=== PATIENT | male | born 1975 ===

== ENCOUNTER 2017-04-10 14:32 | Emergency (ER) | payer OTHER ==
[2017-04-10 14:33] VITALS: BMI 25.1
[2017-04-10 14:54] VITALS: BP 118/77; PULSE 79; RESP 20; TEMP 98.5; O2SAT 98
--- NOTE | 2017-04-10 15:19 | C.PDOC ---
History Of Present Illness 41 y/o M c no PMHx p/w R lower back pain x 2 days radiating down R leg. States began immediately while he was moving an air conditioner. Worse with bending over. Denies numbness, paresthesias, urinary or bowel changes, motor weakness. Time Seen by Provider: 04/10/17 15:01 Chief Complaint (Nursing): Back Pain Past Medical History Vital Signs: Last Vital Signs Temp 98.5 F 04/10/17 14:53 Pulse 79 04/10/17 14:53 Resp 20 04/10/17 14:53 BP 118/77 04/10/17 14:53 Pulse Ox 98 04/10/17 15:20 - Medical History PMH: Denies: Chronic Kidney Disease Surgical History: Appendectomy (1998) Family History: States: Unknown Family Hx - Social History Hx Tobacco Use: Yes Hx Alcohol Use: No Hx Substance Use: No - Immunization History Hx Tetanus Toxoid Vaccination: No Hx Influenza Vaccination: No Hx Pneumococcal Vaccination: No Review Of Systems Except As Marked, All Systems Reviewed And Found Negative. Constitutional: Negative for: Fever Cardiovascular: Negative for: Chest Pain Physical Exam - Physical Exam Additional Physical Exam Comments: R leg FROM at hip, knee with pain. Antalgic gait. Sensation to light touch intact in bilateral legs and saddle area. R perispinal tenderness. No midline tenderness. ED Course And Treatment O2 Sat by Pulse Oximetry: 98 Medical Decision Making Medical Decision Making: Flexeril PO, rest, NSAIDs. F/u PMD, return to ED for worsening pain, urinary or bowel changes, numbness, weakness. Disposition - Disposition Disposition: HOME/ ROUTINE Disposition Time: 15:27 Condition: STABLE Prescriptions: Methocarbamol [Robaxin-750] 1 tab PO Q8H #12 tablet Instructions: Back Pain (ED) Forms: [facility] (Zambian) - Clinical Impression Clinical Impression: Low back pain
== END 2017-04-10 16:00 | disposition home or self-care (01) ==
LOC: C.ER 14:32
DX: M54.5 Low back pain (principal)
CPT/HCPCS: 96372; 99283; J1885

== ENCOUNTER 2017-04-21 14:15 | Emergency (ER) | payer OTHER ==
[2017-04-21 14:15] VITALS: BMI 25.1
[2017-04-21] MEDS ORDERED: Naproxen 550 mg Tab PO STA (14:53)
[2017-04-21] MEDS ORDERED: Naproxen 550 mg Tab PO ONE (15:12)
[2017-04-21 15:52] LABS: RBC URINE < 1 /hpf (0-3); URINE BILIRUBIN NEGATIVE (NEGATIVE); URINE BLOOD NEGATIVE (NEGATIVE); URINE COLOR Yellow (YELLOW); URINE GLUCOSE (UA) NORMAL (Normal); URINE KETONE NEGATIVE (NEGATIVE); URINE LEUKOCYTE ESTERASE NEG Leu/uL (Negative); URINE PROTEIN NEGATIVE (NEGATIVE); URINE UROBILINOGEN NORMAL mg/dL (0.2-1.0); WBC URINE < 1 /hpf (0-5)
--- NOTE | 2017-04-21 16:06 | C.PDOC ---
History Of Present Illness 41 y/o male presents to the ED for evaluation of right-sided lower back and hip pain which began after he lifted a heavy air conditioner around 10 days ago. Patient states he was evaluated in ED for his pain and was discharged with Rx. Patient states his back pain has improved but he continues to experience hip pain which now radiates down his right leg. Patient also reports left foot pain which began around 3 days ago. Patient denies fever, chills, dysuria, hematuria , urinary/bowel incontinence, or recent trauma/injury to affected area, or extremity numbness/weakness. Time Seen by Provider: 04/21/17 14:30 Chief Complaint (Nursing): Back Pain History Per: Patient History/Exam Limitations: no limitations Onset/Duration Of Symptoms: Days Current Symptoms Are (Timing): Still Present Quality Of Discomfort: "Pain" Previous Symptoms: Back Pain Associated Symptoms: denies: Incontinence, New Weakness, New Numbness Additional History Per: Patient Past Medical History Reviewed: Historical Data, Nursing Documentation, Vital Signs Vital Signs: Last Vital Signs Temp 97.5 F L 04/21/17 16:40 Pulse 74 04/21/17 16:40 Resp 17 04/21/17 16:40 BP 123/81 04/21/17 16:40 Pulse Ox 98 04/21/17 23:20 - Medical History PMH: No Chronic Diseases Surgical History: Appendectomy (1998) Family History: States: Unknown Family Hx - Social History Hx Tobacco Use: Yes Hx Alcohol Use: No Hx Substance Use: No - Immunization History Hx Tetanus Toxoid Vaccination: No Hx Influenza Vaccination: No Hx Pneumococcal Vaccination: No Review Of Systems Genitourinary: Negative for: Dysuria, Hematuria Musculoskeletal: Positive for: Back Pain (right-sided, lower ), Leg Pain (right ), Foot Pain (left ), Other (right hip pain ) Neurological: Negative for: Weakness, Numbness Physical Exam - Physical Exam Appears: Non-toxic, No Acute Distress, Other (in mild pain ) Skin: Normal Color, Warm, Dry Head: Atraumatic, Normacephalic Eye(s): bilateral: Normal Inspection Oral Mucosa: Moist Neck: Supple Chest: Symmetrical, No Deformity, No Tenderness Cardiovascular: Rhythm Regular, No Murmur Respiratory: Normal Breath Sounds, No Rales, No Rhonchi, No Wheezing Gastrointestinal/Abdominal: Soft, No Tenderness, No Guarding, No Rebound Back: Normal Inspection, No CVA Tenderness Extremity: Normal ROM, Tenderness (mild to right lateral hip and left lateral malleolus on palpation ), Capillary Refill (less than 2 seconds ), No Deformity , No Swelling Pulses: Left Dorsalis Pedis: Normal, Right Dorsalis Pedis: Normal Neurological/Psych: Oriented x3, Normal Speech, Normal Cognition Gait: Steady ED Course And Treatment O2 Sat by Pulse Oximetry: 98 (on RA) Pulse Ox Interpretation: Normal - Other Rad foot XR X-Ray: Interpreted by Me, Viewed By Me, Read By Radiologist Interpretation: Accession No. : [id number]. Patient Name / ID : RAJINDER WADSWORTH / [id number]. Exam Date : 04/21/2017 15:46:12 ( Approved ). Study Comment : Sex / Age : M / 41Y. Creator : Dino Lam MD. Dictator : Dino Lam MD. Child Care Team Lead : Channeling Machine Operator : Dino Lam MD. Approver2 : Report Date : 04/21/2017 19:35:52. My Comment : . Left foot three views. History: Foot pain. Comparison: None available. Findings: Mild hallux valgus deformity. No evidence for acute displaced fracture or dislocation. Impression : Hallux valgus deformity. If pain persists, consider MRI. hip/pelvis XR X-Ray: Interpreted by Me, Viewed By Me, Read By Radiologist Interpretation: Accession No. : [id number]. Patient Name / ID : RAJINDER WADSWORTH / [id number]. Exam Date : 04/21/2017 15:46:25 ( Approved ). Study Comment : Sex / Age : M / 41Y. Creator : Dino Lam MD. Dictator : Dino Lam MD. Child Care Team Lead : Channeling Machine Operator : Dino Lam MD. Approver2 : Report Date : 04/21/2017 19:39:28. My Comment : . Pelvis and right hip two views. History: Hip pain. Comparison: None available. Findings: Right hip: Mild narrowing of the right hip joint space with subchondral sclerosis and osteophytosis. No evidence of acute displaced fracture or dislocation. Limited evaluation of the remainder of the bony pelvis demonstrates moderate degenerative changes at the level of the left hip joint space. 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 Degenerative changes in the lower lumbar spine. Impression: Degenerative changes. If pain persists, consider MRI. Progress Note: UA, left foot XR and right hip XR ordered, review shows no evidence of fracture or dislocation. Patient received Naproxen PO and Flexeril PO. Patient continued to experience pain, so he receieved Toradol IM. On reassessment, patient is resting comfortably, showing no signs of distress and reports an improvement in his symptoms. Patient is stable for discharge and is advised to f/u with his PMD within 1-2 days for further evaluation. Reassessment Condition: Improved Disposition Counseled Patient/Family Regarding: Studies Performed, Diagnosis, Need For Followup, Rx Given - Disposition Referrals: Jarrett Terrell MD [Staff Provider] - Christie Yarbrough MD [Staff Provider] - Disposition: HOME/ ROUTINE Disposition Time: 16:05 Condition: STABLE Additional Instructions: FOLLOW UP WITH YOUR DOCTOR IN 1-2 DAYS, AND WITH ORTHOPEDICS WITHIN 1 WEEK USE MEDICATIONS DIRECTED RETURN TO ER IF SYMPTOMS WORSEN Prescriptions: Cyclobenzaprine [Cyclobenzaprine HCl] 10 mg PO BID PRN #15 tab PRN Reason: Muscle Spasm Naproxen [Naprosyn] 1 tab PO BID PRN #25 tab PRN Reason: Pain Instructions: Ankle Sprain (ED), Acute Low Back Pain (ED), Hip Pain (ED) Forms: [employer] ([employer]) Print Language: CYMRAES - POA Present On Arrival: None - Clinical Impression Clinical Impression: Low back pain, Left ankle pain, Right hip pain - Scribe Statement The provider has reviewed the documentation as recorded by the Scribe (Merle Da Silva) Provider Attestation: All medical record entries made by the Scribe were at my direction and personally dictated by me. I have reviewed the chart and agree that the record accurately reflects my personal performance of the history, physical exam, medical decision making, and the department course for this patient. I have also personally directed, reviewed, and agree with the discharge instructions and disposition.
[2017-04-21 16:40] VITALS: BP 123/81; PULSE 74; RESP 17; TEMP 97.5
[2017-04-21 16:58] VITALS: O2SAT 98
--- NOTE | 2017-04-21 19:37 | RAD ---
Left foot three views History: Foot pain. Comparison: None available. Findings: Mild hallux valgus deformity. No evidence for acute displaced fracture or dislocation. Impression: Hallux valgus deformity. If pain persists, consider MRI.
--- NOTE | 2017-04-21 19:41 | RAD ---
Pelvis and right hip two views History: Hip pain. Comparison: None available. Findings: Right hip: Mild narrowing of the right hip joint space with subchondral sclerosis and osteophytosis. No evidence of acute displaced fracture or dislocation. Limited evaluation of the remainder of the bony pelvis demonstrates moderate degenerative changes at the level of the left hip joint space. 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 Degenerative changes in the lower lumbar spine. Impression: Degenerative changes. If pain persists, consider MRI.
== END 2017-04-21 16:47 | disposition home or self-care (01) ==
LOC: C.ER 14:15
DX: M54.5 Low back pain (principal); M25.572 Pain in left ankle and joints of left foot; M25.551 Pain in right hip
CPT/HCPCS: 73502; 73630; 81001; 96372; 99285; J1885

== ENCOUNTER 2017-09-29 08:54 | Day surgery (SDC) | payer OTHER ==
[2017-09-29 09:34] VITALS: BMI 30.7
[2017-09-29] MEDS ORDERED: Midazolam 2 MG/2 ML VIAL ONE (11:24)
[2017-09-29] MEDS ORDERED: Propofol 10 mg/ml Inj (20 ML) ONE (11:25)
[2017-09-29] MEDS ORDERED: Lidocaine Hydrochloride 5 ML INJ ONE (11:25)
[2017-09-29 12:10] VITALS: TEMP 97.8
[2017-09-29 12:29] VITALS: O2SAT 100
[2017-09-29 12:39] VITALS: BP 113/71; PULSE 68; RESP 14
== END 2017-09-29 13:05 | disposition home or self-care (01) ==
LOC: C.ENDO 08:54
PROVIDERS: ATTEND Internal Medicine Gastroenterology
DX: R10.13 Epigastric pain (principal); K29.70 Gastritis, unspecified, without bleeding
CPT/HCPCS: 43239; 88305; J2250; J2704

== ENCOUNTER 2017-11-05 10:22 | Emergency (ER) | payer OTHER ==
[2017-11-05 10:38] VITALS: BMI 34.0
[2017-11-05 10:43] VITALS: TEMP 97.9
[2017-11-05] MEDS ORDERED: Sodium Chloride 0.9% 1,000 ML IV ONE (11:03)
[2017-11-05 11:30] LABS: BASO % 0.6 % (0.0-2.0); EOS # 0.3 K/uL (0.0-0.7); EOS % 4.9 % (0.0-4.0); HEMOGLOBIN 14.8 g/dL (12.0-18.0); LYMPH # 2.2 K/uL (1.0-4.3); LYMPH % 30.7 % (20.0-40.0); MEAN CELL VOLUME 80.5 fL (80.0-94.0); MEAN CORPUSCULAR HEMOGLOBIN 27.5 pg (27.0-31.0); MEAN CORPUSCULAR HGB CONC 34.2 g/dL (33.0-37.0); MEAN PLATELET VOLUME 8.9 fL (7.2-11.7); MONO # 0.8 K/uL (0.0-0.8); MONO % 11.9 % (0.0-10.0); NEUT # 3.7 K/uL (1.8-7.0); NEUT % 51.9 % (50.0-75.0); NRBC % 0.1 % (0.0-2.0); RBC 5.39 Mil/uL (4.40-5.90); RED CELL DISTRIBUTION WIDTH 13.1 % (11.5-14.5); WHITE BLOOD COUNT 7.1 K/uL (4.8-10.8)
--- NOTE | 2017-11-05 11:42 | RAD ---
HISTORY: COMPARISON: 05/26/2016. TECHNIQUE: Chest PA and lateral FINDINGS: LINES AND TUBES: None. LUNG AND PLEURA: The lungs are well inflated and clear. HEART AND MEDIASTINUM: The heart is not enlarged. The hilar and mediastinal contours are within normal limits. SKELETAL STRUCTURES: The bony structures are within normal limits for the patient's age. VISUALIZED UPPER ABDOMEN: Normal. OTHER FINDINGS: None. IMPRESSION: No active pulmonary disease.
[2017-11-05 11:51] VITALS: O2SAT 100
[2017-11-05 11:52] LABS: ALB/GLOB RATIO 1.1 (1.0-2.1); ALBUMIN 4.1 g/dL (3.5-5.0); ALT/SGPT 103 U/L (21-72); AST/SGOT 46 U/L (17-59); BLOOD UREA NITROGEN 15 mg/dL (9-20); CALCIUM 9.2 mg/dl (8.6-10.4); GFR AFRICAN-AMERICAN > 60; GFR NON-AFRICAN AMERICAN > 60
--- NOTE | 2017-11-05 12:12 | C.PDOC ---
History Of Present Illness 41 y/o male presents to ED with complaints of feeling dizzy for 2 days. Patient has no history of diabetes but states he measured blood sugar today which was 24. Patient decided to come to ED for further evaluation and denies fever, chills, headache, vision changes, nausea, vomiting or any other complaints at this time. Time Seen by Provider: 11/05/17 10:54 Chief Complaint (Nursing): Dizziness/Lightheaded History Per: Patient History/Exam Limitations: no limitations Onset/Duration Of Symptoms: Days Current Symptoms Are (Timing): Still Present Activity At Onset Of Symptoms: Standing Seizure Or Post-ictal Symptoms: None Severity: Mild Past Medical History Reviewed: Historical Data, Nursing Documentation, Vital Signs Vital Signs: Last Vital Signs Temp 97.9 F 11/05/17 10:37 Pulse 68 11/05/17 13:47 Resp 16 11/05/17 13:47 BP 125/88 11/05/17 13:47 Pulse Ox 100 11/05/17 13:47 - Medical History PMH: No Chronic Diseases Surgical History: Appendectomy (1998) Family History: States: No Known Family Hx - Social History Hx Tobacco Use: Yes Hx Alcohol Use: No Hx Substance Use: No - Immunization History Hx Tetanus Toxoid Vaccination: No Hx Influenza Vaccination: No Hx Pneumococcal Vaccination: No Review Of Systems Constitutional: Negative for: Fever, Chills ENT: Negative for: Ear Pain Respiratory: Negative for: Cough Gastrointestinal: Negative for: Nausea, Vomiting Neurological: Positive for: Dizziness. Negative for: Weakness, Numbness, Headache Physical Exam - Physical Exam Appears: Non-toxic, No Acute Distress Skin: Warm, Dry, No Rash Head: Atraumatic, Normacephalic Oral Mucosa: Moist Neck: Normal ROM, Supple Cardiovascular: Rhythm Regular Respiratory: Normal Breath Sounds, No Rales, No Rhonchi, No Wheezing Gastrointestinal/Abdominal: Soft, No Tenderness, No Guarding, No Rebound Extremity: Normal ROM, Capillary Refill (<2 seconds) Neurological/Psych: Oriented x3, Normal Speech, Normal Cognition, Normal Cranial Nerves, Normal Motor, Normal Sensation Gait: Steady ED Course And Treatment - Laboratory Results Result Diagrams: 11/05/17 11:26 11/05/17 11:26 Lab Interpretation: Normal ECG: Interpreted By Me ECG Rhythm: Sinus Rhythm ECG Interpretation: No Acute Changes Rate From EC O2 Sat by Pulse Oximetry: 100 (RA) Pulse Ox Interpretation: Normal - Radiology CXR: Interpreted by Me CXR Interpretation: Yes: No Acute Disease Progress Note: Blood work, UA, ECG ordered. IV fluids and Meclizine administered. On re-evaluation feeling better, ambulating with steady gait Reassessment Condition: Improved Disposition Counseled Patient/Family Regarding: Studies Performed, Diagnosis, Need For Followup, Rx Given - Disposition Referrals: Jarrett Terrell MD [Staff Provider] - Disposition: HOME/ ROUTINE Disposition Time: 13:40 Condition: GOOD Additional Instructions: Return to ED if any increase symptoms Prescriptions: Meclizine [Meclizine*] 25 mg PO Q12 #12 tab Instructions: Vertigo (a Type of Dizziness) Forms: [employer] (Polish) - POA Present On Arrival: None - Clinical Impression Clinical Impression: Dizziness - PA / CURED MEATS SUPERVISOR / Resident Statement MD/DO has reviewed & agrees with the documentation as recorded. - Scribe Statement The provider has reviewed the documentation as recorded by the Morenaibmike José All medical record entries made by the Morenaibmike were at my direction and personally dictated by me. I have reviewed the chart and agree that the record accurately reflects my personal performance of the history, physical exam, medical decision making, and the department course for this patient. I have also personally directed, reviewed, and agree with the discharge instructions and disposition.
[2017-11-05 13:29] LABS: SQUAMOUS EPITHIAL < 1 /hpf (0-5); URINE BILIRUBIN NEGATIVE (NEGATIVE); URINE BLOOD NEGATIVE (NEGATIVE); URINE CLARITY Clear (Clear); URINE COLOR Straw (YELLOW); URINE GLUCOSE (UA) NORMAL (Normal); URINE LEUKOCYTE ESTERASE NEG Leu/uL (Negative); URINE PROTEIN NEGATIVE (NEGATIVE); URINE UROBILINOGEN NORMAL mg/dL (0.2-1.0)
[2017-11-05 13:48] VITALS: BP 125/88; PULSE 68; RESP 16
== END 2017-11-05 13:55 | disposition home or self-care (01) ==
LOC: C.ER 10:22
DX: R42 Dizziness and giddiness (principal); Z72.0 Tobacco use
CPT/HCPCS: 71046; 80053; 81001; 85025; 96360; 99285; J7040

== ENCOUNTER 2017-12-15 20:43 | Emergency (ER) | payer OTHER ==
[2017-12-15 20:43] VITALS: BMI 34.0
[2017-12-15 22:11] LABS: BASO # 0.1 K/uL (0.0-0.2); BASO % 0.9 % (0.0-2.0); EOS # 0.4 K/uL (0.0-0.7); EOS % 4.6 % (0.0-4.0); HEMOGLOBIN 14.6 g/dL (12.0-18.0); LYMPH % 34.2 % (20.0-40.0); MEAN CELL VOLUME 80.6 fL (80.0-94.0); MEAN CORPUSCULAR HEMOGLOBIN 27.6 pg (27.0-31.0); MEAN CORPUSCULAR HGB CONC 34.2 g/dL (33.0-37.0); MEAN PLATELET VOLUME 9.1 fL (7.2-11.7); MONO # 1.2 K/uL (0.0-0.8); NEUT # 4.2 K/uL (1.8-7.0); NEUT % 47.3 % (50.0-75.0); NRBC % 0.1 % (0.0-2.0); RBC 5.3 Mil/uL (4.40-5.90); RED CELL DISTRIBUTION WIDTH 13.6 % (11.5-14.5); WHITE BLOOD COUNT 8.8 K/uL (4.8-10.8)
[2017-12-15 22:14] LABS: URINE BILIRUBIN NEGATIVE (NEGATIVE); URINE BLOOD NEGATIVE (NEGATIVE); URINE CLARITY Clear (Clear); URINE COLOR Yellow (YELLOW); URINE GLUCOSE (UA) NORMAL (Normal); URINE LEUKOCYTE ESTERASE NEG Leu/uL (Negative); URINE PROTEIN NEGATIVE (NEGATIVE); URINE UROBILINOGEN NORMAL mg/dL (0.2-1.0)
[2017-12-15 22:22] LABS: ALB/GLOB RATIO 1.1 (1.0-2.1); ALBUMIN 4.2 g/dL (3.5-5.0); ALT/SGPT 110 U/L (21-72); AST/SGOT 47 U/L (17-59); BLOOD UREA NITROGEN 15 mg/dL (9-20); CALCIUM 9.2 mg/dl (8.6-10.4); GFR AFRICAN-AMERICAN > 60; GFR NON-AFRICAN AMERICAN > 60; LIPASE 42 U/L (23-300)
--- NOTE | 2017-12-15 23:51 | C.PDOC ---
History Of Present Illness 42 y/o male with a history of fatty liver and gall bladder disease presents to the ED for right side upper abdominal pain. Patient states it began a week ago and it radiates to his right shoulder. He is complaining of nausea. Patient states he has had abdominal pain like this in the past but never this persistent. Denies any vomiting, diarrhea, or fever. Of note, patient denies peptic ulcer disease or GERD. PMD: Dr. Jarrett Terrell Chief Complaint (Nursing): Abdominal Pain History Per: Patient History/Exam Limitations: no limitations Onset/Duration Of Symptoms: Days (1 week) Current Symptoms Are (Timing): Still Present Location Of Pain/Discomfort: Other (radiates to right shoulder) Quality Of Discomfort: "Pain" Associated Symptoms: Nausea. denies: Fever, Vomiting, Diarrhea Recent travel outside of the [place]: No Past Medical History Reviewed: Historical Data, Nursing Documentation, Vital Signs Vital Signs: Last Vital Signs Temp 98 F 12/16/17 03:44 Pulse 78 12/16/17 03:44 Resp 20 12/16/17 03:44 BP 128/76 12/16/17 03:44 Pulse Ox 99 12/16/17 03:44 - Medical History PMH: Gastritis Denies: Asthma, Cardia Arrhythmia, Colonic Polyps, Fractures, Gall Bladder Disease, GERD, Chronic Kidney Disease, Seizures, Sleep Apnea, TIA Other PMH: steatohepatitis, denies peptic ulcer disease Surgical History: Appendectomy (1998) Denies: Endoscopy Family History: States: No Known Family Hx - Social History Hx Tobacco Use: Yes Hx Alcohol Use: No Hx Substance Use: No - Immunization History Hx Tetanus Toxoid Vaccination: No Hx Influenza Vaccination: No Hx Pneumococcal Vaccination: No Review Of Systems Except As Marked, All Systems Reviewed And Found Negative. Constitutional: Negative for: Fever Gastrointestinal: Positive for: Nausea, Abdominal Pain. Negative for: Vomiting , Diarrhea Musculoskeletal: Positive for: Shoulder Pain (right shoulder) Physical Exam - Physical Exam Appears: Well, No Acute Distress Skin: Normal Color, Warm, Dry Head: Atraumatic, Normacephalic Eye(s): bilateral: Normal Inspection, PERRL, EOMI, Other (injected conjunctiva) Nose: Normal Throat: Normal Neck: Normal Cardiovascular: Rhythm Regular, No Murmur Respiratory: Normal Breath Sounds Gastrointestinal/Abdominal: Soft, No Tenderness, Guarding (RUQ), No Rebound, No Other (no Jang's Sign) Back: Normal Inspection Extremity: Normal ROM ED Course And Treatment - Laboratory Results Result Diagrams: 12/15/17 22:01 12/15/17 22:01 O2 Sat by Pulse Oximetry: 99 (RA) Pulse Ox Interpretation: Normal Medical Decision Making Medical Decision Making: Impression: Abdominal pain, biliary colic versus acute cholecystitis versus GERD. Initial Plan: * Lipase Test * Morphine 2 mg IVP * Zofran 4 mg IVP * Abdominal Ultrasound Scribe Attestation: Documented by Maxine Pereira acting as a scribe Clay Payne MD. Scribe Attestation: All medical record entries made by the Scribe were at my direction and personally dictated by me. I have reviewed the chart and agree that the record accurately reflects my personal performance of the history, physical exam, medical decision making, and the department course for this patient. I have also personally directed, reviewed, and agree with the discharge instructions and disposition. Disposition - Disposition Referrals: [facility] [Outside] Disposition: HOME/ ROUTINE Disposition Time: 07:24 Condition: FAIR Prescriptions: Pantoprazole Sodium [Protonix] 40 mg PO DAILY #14 ect Instructions: Acute Abdomen (Belly Pain) Forms: [employer] (Turkish) Print Language: KHMER - Clinical Impression Clinical Impression: Abdominal discomfort
[2017-12-16] MEDS ORDERED: Morphine 4 MG/ML VIAL ONE
[2017-12-16 01:49] VITALS: O2SAT 99
--- NOTE | 2017-12-16 03:26 | US ---
EXAM: US Abdomen Limited, Right Upper Quadrant CLINICAL HISTORY: 42 years old, male; Pain; Abdominal pain; Flank; Right upper quadrant (ruq); Additional info: Ruq pain TECHNIQUE: Real-time ultrasound of the right upper quadrant with image documentation. COMPARISON: CT - ABD PELVIS IV CONTRAST ONLY 2015-10-18 19:49 FINDINGS: Liver: Fatty infiltration. No mass. No intrahepatic ductal dilatation. Gallbladder: No gallstones. No wall thickening. No pericholecystic fluid. No sonographic Jang's sign. Common bile duct: No dilatation. No stones. Pancreas: Unremarkable as visualized. Right kidney: Normal echogenicity. No hydronephrosis. IMPRESSION: 1.No acute findings. 2.Non-acute findings are described above.
[2017-12-16 03:44] VITALS: BP 128/76; PULSE 78; RESP 20; TEMP 98
== END 2017-12-16 03:44 | disposition home or self-care (01) ==
LOC: C.ER 20:43
DX: R10.9 Unspecified abdominal pain (principal); K76.0 Fatty (change of) liver, not elsewhere classified
CPT/HCPCS: 76705; 80053; 81001; 83690; 85025; 96374; 96375; 99285; J2270; J2405

== ENCOUNTER 2018-03-26 16:47 | Emergency (ER) | payer OTHER ==
[2018-03-26 16:47] VITALS: BMI 34.0
[2018-03-26 17:13] VITALS: BP 105/72; PULSE 104; RESP 20; TEMP 98.8; O2SAT 98
--- NOTE | 2018-03-26 18:34 | C.PDOC ---
History Of Present Illness 42 y/o male presents to the ED complaining of dry cough he has been having for the past 3 days. The patient also reports experiencing lower back pain after picking up something heavy at work. He denies any fever, weakness, tingling, radiating pain, nausea or vomiting. Time Seen by Provider: 03/26/18 17:26 Chief Complaint (Nursing): Cough, Cold, Congestion History Per: Patient History/Exam Limitations: no limitations Onset/Duration Of Symptoms: Days Current Symptoms Are (Timing): Still Present Recent travel outside of the [place]: No Past Medical History Reviewed: Historical Data, Nursing Documentation, Vital Signs Vital Signs: Last Vital Signs Temp 98.8 F 03/26/18 17:08 Pulse 104 H 03/26/18 17:08 Resp 20 03/26/18 17:08 BP 105/72 03/26/18 17:08 Pulse Ox 98 03/26/18 18:37 - Medical History PMH: Gastritis Denies: Asthma, Cardia Arrhythmia, Colonic Polyps, Fractures, Gall Bladder Disease, GERD, Chronic Kidney Disease, Seizures, Sleep Apnea, TIA Surgical History: Appendectomy (1998) Denies: Endoscopy Family History: States: Unknown Family Hx - Social History Hx Tobacco Use: Yes Hx Alcohol Use: No Hx Substance Use: No - Immunization History Hx Tetanus Toxoid Vaccination: No Hx Influenza Vaccination: No Hx Pneumococcal Vaccination: No Review Of Systems Except As Marked, All Systems Reviewed And Found Negative. Constitutional: Negative for: Fever Respiratory: Positive for: Cough (: dry cough) Gastrointestinal: Negative for: Nausea, Vomiting Musculoskeletal: Positive for: Back Pain Neurological: Negative for: Weakness, Numbness, Other (tingling) Physical Exam - Physical Exam Appears: Well, Non-toxic, No Acute Distress Skin: Normal Color, Warm, No Rash Head: Atraumatic, Normacephalic Eye(s): bilateral: PERRL, EOMI Oral Mucosa: Moist Throat: Normal Neck: Supple Back: Normal Inspection, CVA Tenderness Neurological/Psych: Oriented x3 ED Course And Treatment O2 Sat by Pulse Oximetry: 98 (RA) Pulse Ox Interpretation: Normal Medical Decision Making Medical Decision Making: Impression: 42 y/o male with dry cough and back pain Plan: --Chest X-Ray --Motrin 600 mg PO Disposition - Disposition Referrals: Jarrett Terrell MD [Staff Provider] - Disposition: HOME/ ROUTINE Disposition Time: 18:55 Condition: GOOD Additional Instructions: ANANTH CALVILLO, thank you for letting us take care of you today. The emergency medical care you received today was directed at your acute symptoms. If you were prescribed any medication, please fill it and take as directed. It may take several days for your symptoms to resolve. Return to the Emergency Department if your symptoms worsen, do not improve, or if you have any other problems. Please contact your doctor or call one of the physicians/clinics you have been referred to that are listed on the Patient Visit Information form that is included in your discharge packet. Bring any paperwork you were given at discharge with you along with any medications you are taking to your follow up visit. Our treatment cannot replace ongoing medical care by a primary care provider outside of the emergency department. Thank you for allowing the [facility] team to be part of your care today. Follow up with your primary care doctor in 2-3 days for re-evaluation and further management. Prescriptions: Cyclobenzaprine [Cyclobenzaprine HCl] 10 mg PO Q8 PRN #20 tab PRN Reason: Muscle Spasm Ibuprofen [Motrin] 600 mg PO Q6 PRN #20 tab PRN Reason: Pain, Moderate (4-7) Instructions: Low Back Pain (DC) Forms: [employer] 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 - Scribe Statement The provider has reviewed the documentation as recorded by the Scribe (Trinity Acosta) Provider Attestation: All medical record entries made by the Scribe were at my direction and personally dictated by me. I have reviewed the chart and agree that the record accurately reflects my personal performance of the history, physical exam, medical decision making, and the department course for this patient. I have also personally directed, reviewed, and agree with the discharge instructions and disposition.
--- NOTE | 2018-03-27 08:55 | RAD ---
HISTORY: COMPARISON: 11/05/2017. TECHNIQUE: Chest PA and lateral FINDINGS: LINES AND TUBES: None. LUNG AND PLEURA: The lungs are well inflated and clear. No pleural effusion or pneumothorax. HEART AND MEDIASTINUM: The heart is not enlarged. The hilar and mediastinal contours are within normal limits. SKELETAL STRUCTURES: The bony structures are within normal limits for the patient's age. VISUALIZED UPPER ABDOMEN: Normal. OTHER FINDINGS: None. IMPRESSION: No active pulmonary disease.
== END 2018-03-26 18:30 | disposition home or self-care (01) ==
LOC: C.ER 16:47
DX: M54.5 Low back pain (principal)

== ENCOUNTER 2018-07-09 14:17 | Emergency (ER) | payer OTHER ==
[2018-07-09 14:17] VITALS: BMI 34.0
[2018-07-09] MEDS ORDERED: Albuterol-Ipratrop 3 mg / 0.5 (3 ml) UD INH STA (14:46)
[2018-07-09 14:51] VITALS: RESP 20; O2SAT 96
--- NOTE | 2018-07-09 14:58 | C.PDOC ---
History Of Present Illness 42 y/o male presents to the ER complaining of non-productive cough for few days and associated chest pain which began in the morning today. Patient states that he recently had sinus surgery by in [place]. Patient denies having SOB, fever, chills, nausea, and vomiting. Time Seen by Provider: 07/09/18 14:28 Chief Complaint (Nursing): Cough, Cold, Congestion History Per: Patient History/Exam Limitations: no limitations Onset/Duration Of Symptoms: Days Current Symptoms Are (Timing): Still Present Severity: Moderate Past Medical History Reviewed: Historical Data, Nursing Documentation, Vital Signs Vital Signs: Last Vital Signs Temp 98.3 F 07/09/18 14:51 Pulse 81 07/09/18 14:51 Resp 20 07/09/18 14:51 BP 118/81 07/09/18 14:51 Pulse Ox 96 07/09/18 14:51 - Medical History PMH: Gastritis Denies: Asthma, Cardia Arrhythmia, Colonic Polyps, Fractures, Gall Bladder Disease, GERD, Chronic Kidney Disease, Seizures, Sleep Apnea, TIA Surgical History: Appendectomy (1998) Denies: Endoscopy Family History: States: No Known Family Hx - Social History Hx Tobacco Use: Yes Hx Alcohol Use: No Hx Substance Use: No - Immunization History Hx Tetanus Toxoid Vaccination: No Hx Influenza Vaccination: No Hx Pneumococcal Vaccination: No Review Of Systems Except As Marked, All Systems Reviewed And Found Negative. Constitutional: Negative for: Fever, Chills ENT: Positive for: Nose Congestion. Negative for: Throat Pain Cardiovascular: Positive for: Chest Pain Respiratory: Positive for: Cough. Negative for: Shortness of Breath Gastrointestinal: Negative for: Nausea, Vomiting Physical Exam - Physical Exam Appears: Non-toxic, No Acute Distress, Other (coughing) Skin: Normal Color, Warm, Dry Head: Atraumatic, Normacephalic Eye(s): bilateral: Normal Inspection, EOMI Ear(s): Bilateral: Normal Nose: Normal Oral Mucosa: Moist Throat: Normal, No Erythema, No Exudate Neck: Supple Chest: Symmetrical Cardiovascular: Rhythm Regular, No Friction Rub, No Murmur, No JVD Respiratory: Normal Breath Sounds, No Rales, No Rhonchi, No Wheezing Extremity: Bilateral: Normal Color And Temperature, Normal ROM Neurological/Psych: Oriented x3, Normal Speech ED Course And Treatment O2 Sat by Pulse Oximetry: 96 (RA) Pulse Ox Interpretation: Normal - Radiology CXR: Interpreted by Me, Viewed By Me CXR Interpretation: Yes: No Acute Disease Medical Decision Making Medical Decision Making: Impression: Viral Syndrome Plan: * Labs * Tessalon Perles PO * Prednisone PO Disposition Counseled Patient/Family Regarding: Diagnosis, Need For Followup, Rx Given - Disposition Referrals: Jarrett Terrell MD [Staff Provider] - Disposition: HOME/ ROUTINE Disposition Time: 15:57 Condition: STABLE Additional Instructions: You have viral upper respiratory infection. Take Tylenol or Motrin alternating every 4-6 hours for Fever 100.4F or higher. Rest and drink plenty of fluids. May use cool mist humidifier or vaporizer in room. Try taking over the counter antihistamine (Claritin, Yanni, Zyrtec), Decongestant or Cough medicine (Mucinex) as needed every 6-8 hours. Follow up with your primary medical doctor or clinic in 1 week for further evaluation. Prescriptions: Albuterol HFA [Ventolin HFA 90 mcg/actuation (8 g)] 1 puff IH Q4 #1 puff Benzonatate [Tessalon Perles] 100 mg PO TID #30 sgl predniSONE [predniSONE Tab] 40 mg PO DAILY #10 tab Instructions: Upper Respiratory Infection (ED) Forms: [facility] (Armenian) - POA Present On Arrival: None - Clinical Impression Clinical Impression: Upper respiratory infection - PA / [employer] / Resident Statement MD/DO has reviewed & agrees with the documentation as recorded. - Scribe Statement The provider has reviewed the documentation as recorded by the Erna Smith Provider Attestation All medical record entries made by the Erna were at my direction and personally dictated by me. I have reviewed the chart and agree that the record accurately reflects my personal performance of the history, physical exam, medical decision making, and the department course for this patient. I have also personally directed, reviewed, and agree with the discharge instructions and disposition.
--- NOTE | 2018-07-09 15:26 | RAD ---
HISTORY: cough and pain COMPARISON: Chest x-ray performed 03/26/18 TECHNIQUE: Chest PA and lateral FINDINGS: LUNGS: No focal consolidation. Please note that chest x-ray has limited sensitivity for the detection of pulmonary masses. PLEURA: No significant pleural effusion identified. No definite pneumothorax . CARDIOVASCULAR: Heart size appears within normal limits. No atherosclerotic calcification present. OSSEOUS STRUCTURES: Degenerative changes of the spine. VISUALIZED UPPER ABDOMEN: Unremarkable. OTHER FINDINGS: None. IMPRESSION: No focal consolidation.
[2018-07-09] MEDS ORDERED: Albuterol-Ipratrop 3 mg / 0.5 (3 ml) UD ONE (16:00)
[2018-07-09 16:20] VITALS: BP 123/82; PULSE 80; TEMP 98.5
== END 2018-07-09 16:22 | disposition home or self-care (01) ==
LOC: C.ER 14:17
DX: J06.9 Acute upper respiratory infection, unspecified (principal)

== ENCOUNTER 2018-07-15 11:06 | Emergency (ER) | payer OTHER ==
[2018-07-15 11:16] VITALS: BMI 30.7
--- NOTE | 2018-07-15 12:02 | C.PDOC ---
History Of Present Illness 42 y/o male presents to the ED complaining of persistent chest pain for 1 week. He was seen here on 07/09, had negative CXR, and was diagnosed with viral URI. Patient states the chest pain has never improved and now worsens with deep inspiration. Additionally patient complains of right upper quadrant pain since yesterday. He reports PMHx of gastritis and previously had an endoscopy with Dr. Courtney. Currently he denies any vomiting, diarrhea, fever, chills, SOB, palpitations, dizziness, or leg pain/swelling. Time Seen by Provider: 07/15/18 11:44 Chief Complaint (Nursing): Chest Pain History Per: Patient History/Exam Limitations: no limitations Onset/Duration Of Symptoms: Days Current Symptoms Are (Timing): Still Present Past Medical History Reviewed: Historical Data, Nursing Documentation, Vital Signs Vital Signs: Last Vital Signs Temp 98 F 07/15/18 11:26 Pulse 88 07/15/18 11:26 Resp 18 07/15/18 11:26 BP 118/77 07/15/18 11:26 Pulse Ox 100 07/15/18 11:26 - Medical History PMH: Gastritis Denies: Asthma, Cardia Arrhythmia, Colonic Polyps, Fractures, Gall Bladder Disease, GERD, Chronic Kidney Disease, Seizures, Sleep Apnea, TIA Surgical History: Appendectomy (1998), Endoscopy Family History: States: Unknown Family Hx - Social History Hx Tobacco Use: Yes Hx Alcohol Use: No Hx Substance Use: No - Immunization History Hx Tetanus Toxoid Vaccination: No Hx Influenza Vaccination: No Hx Pneumococcal Vaccination: No Review Of Systems Except As Marked, All Systems Reviewed And Found Negative. Constitutional: Negative for: Fever, Chills, Sweats Eyes: Negative for: Vision Change Cardiovascular: Positive for: Chest Pain. Negative for: Palpitations Respiratory: Positive for: Cough, Pleuritic Pain. Negative for: Shortness of Breath Gastrointestinal: Positive for: Abdominal Pain. Negative for: Vomiting, Diarrhea, Hematochezia Neurological: Negative for: Weakness, Numbness, Dizziness Physical Exam - Physical Exam Appears: Non-toxic, No Acute Distress Skin: Warm, Dry, No Diaphoretic Head: Atraumatic, Normacephalic Eye(s): bilateral: Normal Inspection, PERRL, EOMI Oral Mucosa: Moist Neck: Normal ROM Chest: Symmetrical, No Deformity, No Tenderness Cardiovascular: Rhythm Regular, No Murmur Respiratory: Normal Breath Sounds, No Rales, No Rhonchi, No Wheezing, Other (NARD) Gastrointestinal/Abdominal: Soft, Tenderness (mild tenderness to the RUQ), No Guarding, No Rebound Extremity: Bilateral: Atraumatic, Normal Color And Temperature, Normal ROM Pulses: Left Radial: Normal, Right Radial: Normal Neurological/Psych: Oriented x3, Normal Speech ED Course And Treatment - Laboratory Results Result Diagrams: 07/15/18 12:15 07/15/18 12:15 ECG: Interpreted By Me, Viewed By Me ECG Rhythm: Sinus Rhythm Rate From EC (bpm) O2 Sat by Pulse Oximetry: 100 (RA) Pulse Ox Interpretation: Normal Progress - Data Reviewed Data Reviewed: Lab, Diagnostic imaging, EKG, Old records Medical Decision Making Medical Decision Making: Impression: Chest pain, RUQ pain Plan: --EKG --CMP --Lipase --Troponin I --CBC --D dimer --Abdominal US --Toradol 30 mg IM Disposition Counseled Patient/Family Regarding: Studies Performed, Diagnosis - Disposition Disposition Time: 13:00 Condition: STABLE Forms: [employer] (Lithuanian) - Clinical Impression Clinical Impression: Chest pain, Abdominal pain - Scribe Statement The provider has reviewed the documentation as recorded by the Morenaibmike Hernandez Provider Attestation: All medical record entries made by the Scribe were at my direction and personally dictated by me. I have reviewed the chart and agree that the record accurately reflects my personal performance of the history, physical exam, medical decision making, and the department course for this patient. I have also personally directed, reviewed, and agree with the discharge instructions and disposition. Physician Patient Turnover Patient Signed Over To: Ankit Downey DO Handoff Comments: NASH BUTLER
[2018-07-15 12:21] LABS: BASO # 0.1 K/uL (0.0-0.2); BASO % 0.6 % (0.0-2.0); EOS # 0.4 K/uL (0.0-0.7); HEMOGLOBIN 13.9 g/dL (12.0-18.0); LYMPH # 3.3 K/uL (1.0-4.3); LYMPH % 28.2 % (20.0-40.0); MEAN CELL VOLUME 80.8 fL (80.0-94.0); MEAN CORPUSCULAR HEMOGLOBIN 26.9 pg (27.0-31.0); MEAN CORPUSCULAR HGB CONC 33.3 g/dL (33.0-37.0); MEAN PLATELET VOLUME 8.8 fL (7.2-11.7); MONO # 1.1 K/uL (0.0-0.8); MONO % 9.3 % (0.0-10.0); NEUT # 6.9 K/uL (1.8-7.0); NEUT % 58.9 % (50.0-75.0); RBC 5.16 Mil/uL (4.40-5.90); RED CELL DISTRIBUTION WIDTH 13.7 % (11.5-14.5); WHITE BLOOD COUNT 11.7 K/uL (4.8-10.8)
[2018-07-15 12:34] LABS: BLOOD UREA NITROGEN 14 mg/dL (9-20); CALCIUM 8.7 mg/dl (8.6-10.4); GFR NON-AFRICAN AMERICAN > 60; LIPASE 31 U/L (23-300)
[2018-07-15 12:49] LABS: ALB/GLOB RATIO 1.2 (1.0-2.1); ALBUMIN 4.1 g/dL (3.5-5.0); ALT/SGPT 70 U/L (21-72); AST/SGOT 39 U/L (17-59)
[2018-07-15 13:02] VITALS: O2SAT 100
--- NOTE | 2018-07-15 15:59 | US ---
Date of service: 07/15/2018 HISTORY: RUQ PAIN COMPARISON: None available. TECHNIQUE: Sonographic evaluation of the right upper quadrant of the abdomen. FINDINGS: LIVER: Measures 18.5 cm in length. Echogenic liver may be seen in setting of hepatic parenchymal disease or fatty infiltration. No focal hepatic mass identified. The main portal vein appears patent with normal directional flow. No intrahepatic bile duct dilatation. GALLBLADDER: No gallstones. No gallbladder wall thickening or pericholecystic edema. Negative sonographic Jang's sign as assessed by the dyeing machine tender. COMMON BILE DUCT: Measures 5 mm. PANCREAS: Not well-visualized. RIGHT KIDNEY: Measures approximately 11.7 x 4.8 x 5.1 cm. No obstructing calculus or hydronephrosis. AORTA: Not well-visualized. IVC: Not well-visualized. OTHER FINDINGS: None . IMPRESSION: Echogenic liver may be seen in setting of hepatic parenchymal disease or fatty infiltration.
[2018-07-15 16:27] VITALS: BP 119/84; PULSE 67; RESP 13; TEMP 97.6
--- NOTE | 2018-07-16 22:09 | CARD ---
APPROVED REPORT Date of service: 07/15/2018 EKG Measurement Heart [id number] CT 160P4 [id number] <Conclusion> Normal sinus rhythm Moderate voltage criteria for LVH, may be normal variant Inferior infarct, age undetermined Abnormal ECG
== END 2018-07-15 16:52 | disposition home or self-care (01) ==
LOC: C.ER 11:06
DX: R07.9 Chest pain, unspecified (principal); R10.11 Right upper quadrant pain
CPT/HCPCS: 76705; 80053; 83690; 84484; 85025; 85378; 93005; 96374; 99285; J1885

== ENCOUNTER 2018-08-24 16:13 | Emergency (ER) | payer OTHER ==
[2018-08-24 16:13] VITALS: BMI 34.0
[2018-08-24 16:54] VITALS: RESP 20; O2SAT 99
--- NOTE | 2018-08-24 18:09 | C.PDOC ---
History Of Present Illness 42 year old male presents to the ED for evaluation of bilateral ankle pain that has been progressively worsening over the past 3 days. Patient describes his pain as sharp, and states it is located around the posterior aspects of his ankle. 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 Patient reports history of arthritis and states he takes glucosamine for his joints. Patient is ambulatory an denies fever, chills, nausea, vomiting, diarrhea, recent unusual activity or known trauma/injury to the site. Time Seen by Provider: 08/24/18 17:05 Chief Complaint (Nursing): Lower Extremity Problem/Injury History Per: Patient History/Exam Limitations: no limitations Onset/Duration Of Symptoms: Days (3) Current Symptoms Are (Timing): Worse Additional History Per: Patient - Ankle/Foot Description Of Injury: denies: Fell, Struck With Object, Struck Against Object, Twisted Past Medical History Reviewed: Historical Data, Nursing Documentation, Vital Signs Vital Signs: Last Vital Signs Temp 98.1 F 08/24/18 16:52 Pulse 92 H 08/24/18 16:52 Resp 20 08/24/18 16:52 BP 136/87 08/24/18 16:52 Pulse Ox 99 08/24/18 16:52 - Medical History PMH: Gastritis Denies: Asthma, Cardia Arrhythmia, Colonic Polyps, Fractures, Gall Bladder Disease, GERD, Chronic Kidney Disease, Seizures, Sleep Apnea, TIA Surgical History: Appendectomy (1998), Endoscopy Family History: States: Unknown Family Hx - Social History Hx Tobacco Use: Yes Hx Alcohol Use: No Hx Substance Use: No - Immunization History Hx Tetanus Toxoid Vaccination: No Hx Influenza Vaccination: No Hx Pneumococcal Vaccination: No Review Of Systems Constitutional: Negative for: Fever, Chills Gastrointestinal: Negative for: Nausea, Vomiting, Diarrhea Neurological: Positive for: Other (bilateral ankle pain ) Physical Exam - Physical Exam Appears: Non-toxic, No Acute Distress Skin: Normal Color, Warm, Dry Head: Atraumatic, Normacephalic Eye(s): bilateral: Normal Inspection Extremity: No Normal ROM (limited secondary to pain with dorsiflexion and external rotation of ankles), Tenderness (to posterior aspects of bilateral ankles, around achilles tendon ), Capillary Refill (less than 2 seconds ), Swelling (mild, to bilateral ankles ) Pulses: Left Dorsalis Pedis: Normal, Right Dorsalis Pedis: Normal Neurological/Psych: Oriented x3, Normal Speech, Normal Cognition ED Course And Treatment O2 Sat by Pulse Oximetry: 99 (on RA) Pulse Ox Interpretation: Normal Medical Decision Making Medical Decision Making: Progress: Tylenol PO and Motrin PO given. Disposition Counseled Patient/Family Regarding: Need For Followup, Rx Given - Disposition Referrals: [facility] [Outside] Disposition: HOME/ ROUTINE Disposition Time: 18:06 Condition: STABLE Additional Instructions: Please follow up in clinic for a Podiatry appointment. Prescriptions: Ibuprofen [Motrin] 600 mg PO TID #15 tab Instructions: Foot Sprain (DC) Forms: General Discharge Instructions, [facility] (Jordanian), Work Excuse - POA Present On Arrival: None - Clinical Impression Clinical Impression: Foot pain, bilateral - Scribe Statement The provider has reviewed the documentation as recorded by the Scribe (Merle Da Silva) Provider Attestation: All medical record entries made by the Scribe were at my direction and perso kina dictated by me. I have reviewed the chart and agree that the record accurately reflects my personal performance of the history, physical exam, medical decision making, and the department course for this patient. I have also personally directed, reviewed, and agree with the discharge instructions and disposition.
[2018-08-24 18:15] VITALS: BP 123/85; PULSE 88; TEMP 98.5
== END 2018-08-24 18:15 | disposition home or self-care (01) ==
LOC: C.ER 16:13
DX: M79.672 Pain in left foot (principal); M79.671 Pain in right foot

== ENCOUNTER 2018-11-25 18:16 | Emergency (ER) | payer OTHER ==
[2018-11-25 18:16] VITALS: BMI 34.0
[2018-11-25 18:27] VITALS: BP 131/84; PULSE 89; RESP 18; TEMP 98; O2SAT 97
--- NOTE | 2018-11-25 20:07 | C.PDOC ---
History Of Present Illness 42 y/o male c/o medial left knee pain after walking on it at 530 am and twisting it. took 400 mg Motrin with no help. Time Seen by Provider: 11/25/18 19:04 Chief Complaint (Nursing): Lower Extremity Problem/Injury History Per: Patient History/Exam Limitations: no limitations Onset/Duration Of Symptoms: Hrs (14) Current Symptoms Are (Timing): Still Present Severity: Moderate - Knee Description Of Injury: Twisted Past Medical History Reviewed: Historical Data, Nursing Documentation, Vital Signs Vital Signs: Last Vital Signs Temp 98 F 11/25/18 18:25 Pulse 89 11/25/18 18:25 Resp 18 11/25/18 18:25 BP 131/84 11/25/18 18:25 Pulse Ox 97 11/25/18 18:25 - Medical History PMH: Gastritis Denies: Asthma, Cardia Arrhythmia, Colonic Polyps, Fractures, Gall Bladder Disease, GERD, Chronic Kidney Disease, Seizures, Sleep Apnea, TIA Surgical History: Appendectomy (1998), Endoscopy Other Surgeries: nasal surgery Family History: States: Unknown Family Hx - Social History Hx Tobacco Use: Yes Hx Alcohol Use: No Hx Substance Use: No - Immunization History Hx Tetanus Toxoid Vaccination: No Hx Influenza Vaccination: No Hx Pneumococcal Vaccination: No Review Of Systems Constitutional: Negative for: Fever, Chills ENT: Negative for: Throat Pain Cardiovascular: Negative for: Chest Pain Respiratory: Negative for: Cough Musculoskeletal: Positive for: Other (knee pain). Negative for: Neck Pain Skin: Negative for: Bruising Neurological: Negative for: Weakness, Numbness Physical Exam - Physical Exam Appears: Non-toxic, No Acute Distress Skin: Warm, Dry Extremity: Normal ROM, Tenderness (medial left knee), No Calf Tenderness, No Swelling Pulses: Left Dorsalis Pedis: Normal Neurological/Psych: Oriented x3, Normal Speech, Normal Cognition ED Course And Treatment O2 Sat by Pulse Oximetry: 97 Medical Decision Making Medical Decision Making: left knee pain s/p twisting. toradol, knee immobilizer. d/c home nsaids. ortho Disposition Counseled Patient/Family Regarding: Diagnosis, Need For Followup, Rx Given - Disposition Referrals: Jarrett Terrell MD [Staff Provider] - Jerod Wilson MD [Staff Provider] - Disposition: HOME/ ROUTINE Disposition Time: 20:09 Condition: GOOD Additional Instructions: Cold compresses several times a day to left knee for 15 minutes at a times. Take ibuprofen with food. Follow up with Dr Martinez and with Dr wilson Prescriptions: Ibuprofen [Motrin] 600 mg PO TID #30 tab Instructions: Internal Derangement of the Knee (DC) Forms: [facility] (Faroese), General Discharge Instructions - Clinical Impression Clinical Impression: Left knee sprain
== END 2018-11-25 20:31 | disposition home or self-care (01) ==
LOC: C.ER 18:16
DX: S83.92XA Sprain of unspecified site of left knee, initial encounter (principal); X50.1XXA Overexertion from prolonged static or awkward postures, initial encounter; Z72.0 Tobacco use
CPT/HCPCS: 96372; 99283; J1885